=== PATIENT | female | born 1955 | race Caucasian/White ===

== ENCOUNTER → 2017-08-15 | Outpatient (CLI) | payer OTHER ==
[~2017-08-15] MED LIST: CALCITRIOL PO; CYCL-259 PO; DULO30CA2 PO; FERROUS PO; PREG50CA PO; TRAM50TA2 PO
[2017-08-15 10:48] LABS: HEMATOCRIT 38.6 % (34.6-47.8); HEMOGLOBIN 12.4 g/dL (11.7-16.4); WHITE BLOOD COUNT 8.9 x10^3/uL (3.4-10)
[2017-08-15 11:00] LABS: BLOOD UREA NITROGEN 16 mg/dL (7-18)
[2017-08-15 11:04] LABS: ASPARTATE AMINO TRANSFERASE 17 U/L (15-37)
== END | disposition home or self-care (01) ==
LOC: STAR 09:31
PROVIDERS: ATTEND Neurological Surgery
DX: Z01.818 Encounter for other preprocedural examination (principal); M48.062 Spinal stenosis, lumbar region with neurogenic claudication; M43.16 Spondylolisthesis, lumbar region; R79.1 Abnormal coagulation profile
CPT/HCPCS: 36415; 71020; 80053; 81003; 85025; 85610; 85730; 93005

== ENCOUNTER → 2018-08-19 | Outpatient (CLI) | payer OTHER ==
[~2018-08-19] MED LIST changes: +HYDR-3240 PO; +SENN1TAB8 PO
== END | disposition home or self-care (01) ==
LOC: RAD 16:37
PROVIDERS: ATTEND Nurse Practitioner Family
DX: R10.31 Right lower quadrant pain (principal)
CPT/HCPCS: 76857

== ENCOUNTER 2018-08-23 12:03 | Inpatient (IN) | payer OTHER ==
[~2018-08-23] VITALS: Ht 167.6 cm; Wt 68.7 kg
[2018-08-23] MEDS ORDERED: ONDANSETRON 2MG/ML, 2ML IVPush ONE (13:00)
[2018-08-23] MEDS ORDERED: MORPHINE SULFATE 4 MG/ML, 1ML IVPush PRN ×2 (13:00→17:00)
[2018-08-23] MEDS ORDERED: SODIUM CHLORIDE FLUSH 10ML SYR IVF ONE (13:00)
[2018-08-23 13:26] LABS: ALANINE AMINOTRANSFERASE 19 U/L (12-78); ALBUMIN 3.1 g/dL (3.4-5.0); ANION GAP 9 mmol/L (5-15); CHLORIDE 104 mmol/L (98-107)
[2018-08-23 13:27] LABS: ALKALINE PHOSPHATASE 96 U/L (45-117); BILIRUBIN,TOTAL 0.2 mg/dL (0.2-1.0); TOTAL PROTEIN 7.7 g/dL (6.4-8.2)
[2018-08-23] MEDS ORDERED: ONDANSETRON 2MG/ML, 2ML ONE (13:29)
[2018-08-23] MEDS ORDERED: MORPHINE SULFATE 4 MG/ML, 1ML ONE (13:30)
[2018-08-23 13:36] LABS: MEAN CORPUSCULAR VOLUME 63.4 fL (80-100); MEAN PLATELET VOLUME 5.7 fL (7.4-10.4); PLATELET COUNT 885 x10^3/uL (130-400); RED BLOOD COUNT 3.42 x10^6/uL (3.82-5.3); RED CELL DISTRIBUTION WIDTH 21.9 % (9.6-15.2)
[2018-08-23 13:39] LABS: MEAN CORPUSCULAR HGB CONC 29.9 g/dL (32.4-35.8)
[2018-08-23 13:52] LABS: MD YES
[2018-08-23 13:53] LABS: BANDS%(MANUAL) 1 % (0-7); EOS#(MANUAL) 0.29 x10^3/uL (0.0-0.4); EOS% (MANUAL) 3 % (1-7); LYMPH#(MANUAL) 1.94 x10^3/uL (1-3.4); LYMPHS% (MANUAL) 20 % (22-44); MONOS#(MANUAL) 0.49 x10^3/uL (0.3-2.7); MONOS% (MANUAL) 5 % (2-9); SEG#(MANUAL) 6.89 x10^3/uL (1.8-6.8); SEGS% (MANUAL) 71 % (42-75)
[2018-08-23 13:54] LABS: ANISOCYTOSIS 2+; MICROCYTOSIS 2+; OVALOCYTES 1+
[2018-08-23 13:55] LABS: ECHINOCYTES 1+; POLYCHROMASIA 1+
[2018-08-23 13:56] LABS: <PLATELET ESTIMATE> INCREASED; HYPOCHROMIA 2+
[2018-08-23 13:58] LABS: SMALL PLATELETS 1+
[2018-08-23 16:21] VITALS: BP 148/97
[2018-08-23 16:38] VITALS: BP 134/78
[2018-08-23 16:59] LABS: CULTURE INDICATED? NO; MICROSCOPIC NOT IND
[2018-08-23] MEDS: NICOTINE 14MG/24 HR PATCH.TD24 TD SCH (17:00)
[2018-08-23] MEDS ORDERED: HYDROcodone/APAP 5/325 TABLET PO PRN (17:00)
[2018-08-23] MEDS ORDERED: TRAZODONE 50MG TABLET PO PRN (17:00)
[2018-08-23] MEDS ORDERED: CYCLOBENZAPRINE 10 MG TABLET PO PRN (17:00)
[2018-08-23] MEDS ORDERED: ENALAPRILAT 1.25 MG/ML, 2ML IVPush PRN (17:00)
[2018-08-23 17:17] VITALS: BP 132/77
[2018-08-23 17:33] VITALS: BP 134/87
[2018-08-23 19:23] VITALS: BP 144/66
[2018-08-23 21:00] VITALS: BP 123/68
[2018-08-23] MEDS: PREGABALIN 25 MG CAPSULE PO SCH (21:00)
[2018-08-23] MEDS ORDERED: GOLYTELY 4,000ML ORAL.SOL PO ONE (21:00)
[2018-08-23] MEDS: FAMOTIDINE 20 MG/2 ML IVPush SCH (21:18)
[2018-08-24 02:15] VITALS: BP 138/74
[2018-08-24 06:12] LABS: INTERNATIONAL NORMALIZED RATIO 1.02 (0.93-1.1); PROTHROMBIN TIME 10.6 Seconds (9.6-11.5)
[2018-08-24 06:15] LABS: ANION GAP 8 mmol/L (5-15); CALCIUM 8.6 mg/dL (8.5-10.1); CHLORIDE 107 mmol/L (98-107); CREATININE 0.68 mg/dL (0.55-1.02); MEAN CORPUSCULAR HEMOGLOBIN 20.8 pg (27.0-34.8); MEAN PLATELET VOLUME 5.7 fL (7.4-10.4); PLATELET COUNT 722 x10^3/uL (130-400); RED BLOOD COUNT 3.56 x10^6/uL (3.82-5.3); RED CELL DISTRIBUTION WIDTH 25.8 % (9.6-15.2)
[2018-08-24 06:43] LABS: MD YES
[2018-08-24 06:45] LABS: ANISOCYTOSIS 2+; HYPOCHROMIA 2+; LYMPH#(MANUAL) 1.66 x10^3/uL (1-3.4); LYMPHS% (MANUAL) 18 % (22-44); MICROCYTOSIS 2+; MONOS#(MANUAL) 1.01 x10^3/uL (0.3-2.7); MONOS% (MANUAL) 11 % (2-9); OVALOCYTES 1+; POLYCHROMASIA 1+; SEG#(MANUAL) 6.53 x10^3/uL (1.8-6.8); SEGS% (MANUAL) 71 % (42-75)
[2018-08-24 06:46] LABS: <PLATELET ESTIMATE> INCREASED; SMALL PLATELETS 1+
[2018-08-24] MEDS ORDERED: MIDAZOLAM 1 MG/ML, 5ML ONE (07:06)
[2018-08-24] MEDS ORDERED: FENTANYL PF 100 MCG/2ML ONE (07:06)
[2018-08-24] MEDS ORDERED: DIPHENHYDRAMINE 50 MG/ML, 1ML ONE (07:20)
[2018-08-24] MEDS ORDERED: GOLYTELY 4,000ML ORAL.SOL PO ONE (08:30)
[2018-08-24 08:44] VITALS: BP 143/80
[2018-08-24] MEDS: PREGABALIN 25 MG CAPSULE PO SCH ×2 (09:00→19:50)
[2018-08-24] MEDS: FAMOTIDINE 20 MG/2 ML IVPush SCH ×2 (10:05→19:50)
[2018-08-24] MEDS: DULOXETINE 30 MG CAPSULE.DR PO SCH (10:05)
[2018-08-24] MEDS: SENNA/DOCUSATE TABLET PO SCH (10:05)
[2018-08-24 12:52] VITALS: BP 151/82
[2018-08-24] MEDS ORDERED: ACETAMINOPHEN 325 MG TABLET PO PRN (13:00)
[2018-08-24] MEDS: NICOTINE 14MG/24 HR PATCH.TD24 TD SCH (17:00)
[2018-08-24 19:56] VITALS: BP 149/74
[2018-08-25 01:10] VITALS: BP 132/77
[2018-08-25 04:36] LABS: MEAN CORPUSCULAR HEMOGLOBIN 20.3 pg (27.0-34.8); MEAN CORPUSCULAR HGB CONC 30.2 g/dL (32.4-35.8); MEAN CORPUSCULAR VOLUME 67.3 fL (80-100); MEAN PLATELET VOLUME 5.8 fL (7.4-10.4); PLATELET COUNT 742 x10^3/uL (130-400); RED BLOOD COUNT 3.68 x10^6/uL (3.82-5.3); RED CELL DISTRIBUTION WIDTH 26.4 % (9.6-15.2)
[2018-08-25 04:38] LABS: MD YES
[2018-08-25 04:44] LABS: ANION GAP 9 mmol/L (5-15); CALCIUM 8.1 mg/dL (8.5-10.1); CHLORIDE 105 mmol/L (98-107)
[2018-08-25 04:45] LABS: CREATININE 0.63 mg/dL (0.55-1.02)
[2018-08-25 04:53] LABS: <PLATELET ESTIMATE> INCREASED; <PLT MORPHOLOGY> NORMAL PLT MORPH; ANISOCYTOSIS 2+; EOS#(MANUAL) 0.24 x10^3/uL (0.0-0.4); EOS% (MANUAL) 3 % (1-7); HYPOCHROMIA 2+; LYMPHS% (MANUAL) 21 % (22-44); MICROCYTOSIS 2+; MONOS#(MANUAL) 0.81 x10^3/uL (0.3-2.7); MONOS% (MANUAL) 10 % (2-9); OVALOCYTES 1+; POLYCHROMASIA 1+; SEG#(MANUAL) 5.35 x10^3/uL (1.8-6.8); SEGS% (MANUAL) 66 % (42-75)
[2018-08-25 06:42] VITALS: BP 136/80
[2018-08-25] MEDS ORDERED: FENTANYL PF 100 MCG/2ML ONE (07:00)
[2018-08-25] MEDS ORDERED: MIDAZOLAM 1 MG/ML, 5ML ONE (07:01)
[2018-08-25] MEDS ORDERED: DIPHENHYDRAMINE 50 MG/ML, 1ML ONE (07:01)
[2018-08-25] MEDS: SENNA/DOCUSATE TABLET PO SCH (09:00)
[2018-08-25] MEDS: PREGABALIN 25 MG CAPSULE PO SCH ×2 (09:00→21:00)
[2018-08-25] MEDS: DULOXETINE 30 MG CAPSULE.DR PO SCH (11:30)
[2018-08-25] MEDS: IRON SUCROSE COMPLEX 100MG/5ML IV SCH (11:46)
[2018-08-25] MEDS: FAMOTIDINE 20 MG/2 ML IVPush SCH (12:00)
[2018-08-25 13:38] VITALS: BP 137/72
[2018-08-25] MEDS: NICOTINE 14MG/24 HR PATCH.TD24 TD SCH (17:00)
[2018-08-25 19:54] VITALS: BP 129/83
[2018-08-25] MEDS: FAMOTIDINE 20 MG TABLET PO SCH (21:19)
[2018-08-26 01:51] VITALS: BP 127/75
[2018-08-26 04:40] LABS: MEAN CORPUSCULAR HEMOGLOBIN 20.6 pg (27.0-34.8); MEAN CORPUSCULAR HGB CONC 30.3 g/dL (32.4-35.8); MEAN CORPUSCULAR VOLUME 68.2 fL (80-100); MEAN PLATELET VOLUME 6.3 fL (7.4-10.4); PLATELET COUNT 703 x10^3/uL (130-400); RED BLOOD COUNT 3.83 x10^6/uL (3.82-5.3)
[2018-08-26 04:50] LABS: CHLORIDE 109 mmol/L (98-107)
[2018-08-26 04:51] LABS: RED CELL DISTRIBUTION WIDTH 26.7 % (9.6-15.2)
[2018-08-26 04:53] LABS: ANION GAP 9 mmol/L (5-15); CALCIUM 8.9 mg/dL (8.5-10.1); CREATININE 0.84 mg/dL (0.55-1.02)
[2018-08-26 05:59] LABS: MD YES
[2018-08-26 06:01] LABS: BASOS#(MANUAL) 0.09 x10^3/uL (0-0.1); BASOS% (MANUAL) 1 % (0-1); EOS#(MANUAL) 0.09 x10^3/uL (0.0-0.4); EOS% (MANUAL) 1 % (1-7); LYMPH#(MANUAL) 1.49 x10^3/uL (1-3.4); LYMPHS% (MANUAL) 16 % (22-44); MONOS#(MANUAL) 1.21 x10^3/uL (0.3-2.7); MONOS% (MANUAL) 13 % (2-9); SEG#(MANUAL) 6.42 x10^3/uL (1.8-6.8); SEGS% (MANUAL) 69 % (42-75)
[2018-08-26 06:03] LABS: ANISOCYTOSIS 2+; HYPOCHROMIA 2+; MICROCYTOSIS 2+; OVALOCYTES 1+; POLYCHROMASIA 1+
[2018-08-26 06:04] LABS: <PLATELET ESTIMATE> INCREASED; SMALL PLATELETS 1+
[2018-08-26 06:05] LABS: SPHEROCYTES 1+
[2018-08-26 07:54] VITALS: BP 117/77
[2018-08-26] MEDS ORDERED: FERROUS GLUCONATE 324 MG TABLET PO SCH (08:00)
[2018-08-26] MEDS: SENNA/DOCUSATE TABLET PO SCH (09:00)
[2018-08-26] MEDS: PREGABALIN 25 MG CAPSULE PO SCH ×2 (09:00→21:00)
[2018-08-26] MEDS: DULOXETINE 30 MG CAPSULE.DR PO SCH (09:00)
[2018-08-26] MEDS: FAMOTIDINE 20 MG TABLET PO SCH ×2 (09:22→21:20)
[2018-08-26] MEDS: IRON SUCROSE COMPLEX 100MG/5ML IV SCH (09:22)
[2018-08-26 13:37] VITALS: BP 117/64
[2018-08-26] MEDS: NICOTINE 14MG/24 HR PATCH.TD24 TD SCH (17:00)
[2018-08-26 19:32] VITALS: BP 128/76
[2018-08-26] MEDS ORDERED: OMNIPAQUE 350 MG/ML, 75ML BOTTLE ONE (21:55)
[2018-08-27 00:48] VITALS: BP 108/54
[2018-08-27 04:46] LABS: MEAN CORPUSCULAR HEMOGLOBIN 20.9 pg (27.0-34.8); MEAN CORPUSCULAR HGB CONC 30.8 g/dL (32.4-35.8); MEAN CORPUSCULAR VOLUME 67.9 fL (80-100); MEAN PLATELET VOLUME 6.1 fL (7.4-10.4); PLATELET COUNT 702 x10^3/uL (130-400); RED BLOOD COUNT 3.63 x10^6/uL (3.82-5.3); RED CELL DISTRIBUTION WIDTH 26.9 % (9.6-15.2)
[2018-08-27 04:56] LABS: ANION GAP 8 mmol/L (5-15); CALCIUM 8.7 mg/dL (8.5-10.1); CHLORIDE 107 mmol/L (98-107)
[2018-08-27 04:57] LABS: CREATININE 0.83 mg/dL (0.55-1.02)
[2018-08-27 05:10] LABS: MD YES
[2018-08-27 05:12] LABS: ANISOCYTOSIS 2+; BAND#(MANUAL) 0.11 x10^3/uL; BANDS%(MANUAL) 1 % (0-7); BASOS#(MANUAL) 0.11 x10^3/uL (0-0.1); BASOS% (MANUAL) 1 % (0-1); EOS#(MANUAL) 0.46 x10^3/uL (0.0-0.4); EOS% (MANUAL) 4 % (1-7); HYPOCHROMIA 2+; LYMPH#(MANUAL) 3.08 x10^3/uL (1-3.4); LYMPHS% (MANUAL) 27 % (22-44); MICROCYTOSIS 2+; MONOS#(MANUAL) 0.68 x10^3/uL (0.3-2.7); MONOS% (MANUAL) 6 % (2-9); POLYCHROMASIA 1+; SEG#(MANUAL) 6.95 x10^3/uL (1.8-6.8); SEGS% (MANUAL) 61 % (42-75)
[2018-08-27 05:13] LABS: OVALOCYTES 1+; SCHISTOCYTES 1+
[2018-08-27 05:14] LABS: <PLATELET ESTIMATE> INCREASED; <PLT MORPHOLOGY> NORMAL PLT MORPH
[2018-08-27 07:17] VITALS: BP 109/65
[2018-08-27] MEDS: PREGABALIN 25 MG CAPSULE PO SCH ×2 (09:00→20:57)
[2018-08-27] MEDS: SENNA/DOCUSATE TABLET PO SCH (09:00)
[2018-08-27] MEDS: DULOXETINE 30 MG CAPSULE.DR PO SCH (09:00)
[2018-08-27] MEDS: FAMOTIDINE 20 MG TABLET PO SCH ×2 (09:00→20:57)
[2018-08-27] MEDS: IRON SUCROSE COMPLEX 100MG/5ML IV SCH (09:20)
[2018-08-27] MEDS: NICOTINE 14MG/24 HR PATCH.TD24 TD SCH ×2 (09:21→18:00)
[2018-08-27 13:27] VITALS: BP 132/79
[2018-08-27] MEDS ORDERED: EPINEPHRINE 1 MG/ML, 1ML ONE (14:15)
[2018-08-27] MEDS ORDERED: BUPIVACAINE/PF 0.5% ONE (14:15)
[2018-08-27] MEDS ORDERED: FENTANYL PF 250 MCG/5ML ONE (15:08)
[2018-08-27] MEDS ORDERED: MIDAZOLAM 1 MG/ML, 2ML ONE (15:08)
[2018-08-27] MEDS ORDERED: LIDOCAINE JELLY 2%, 30GM ONE (15:12)
[2018-08-27] MEDS ORDERED: ROCURONIUM 10MG/ML,5ML ONE (15:13)
[2018-08-27] MEDS ORDERED: ROPIvacaine/PF 0.2%, 20 ML ONE ×2 (15:14)
[2018-08-27] MEDS ORDERED: INDOCYANINE GREEN 25 MG VIAL ONE (15:31)
[2018-08-27] MEDS ORDERED: ONDANSETRON 2MG/ML, 2ML ONE ×3 (15:36→17:46)
[2018-08-27] MEDS ORDERED: KETOROLAC 30 MG/1 ML ONE ×2 (15:36→17:46)
[2018-08-27] MEDS ORDERED: PROPOFOL 10 MG/ML, 20ML ONE (15:36)
[2018-08-27] MEDS ORDERED: SUCCINYLCHOLINE 20 MG/ML, 10ML ONE (15:36)
[2018-08-27] MEDS ORDERED: CEFOTETAN PMX 1GM/50ML 50 ML IVPB ONE (15:36)
[2018-08-27] MEDS ORDERED: ROCURONIUM 10 MG/ML,10ML ONE (15:36)
[2018-08-27] MEDS ORDERED: DEXAMETHASONE 4 MG/ML, 1ML ONE (15:36)
[2018-08-27] MEDS ORDERED: hydrALAzine 20 MG/ML, 1ML IV PRN (16:30)
[2018-08-27] MEDS ORDERED: ACETAMINOPHEN 325 MG TABLET PO PRN (16:30)
[2018-08-27] MEDS ORDERED: HALOPERIDOL 5 MG/ML IV PRN (16:30)
[2018-08-27] MEDS ORDERED: LABETALOL 5MG/ML, 20ML IV PRN (16:30)
[2018-08-27] MEDS ORDERED: HYDROmorphone 1 MG/ML, 1ML IV PRN (16:30)
[2018-08-27] MEDS ORDERED: ONDANSETRON 2MG/ML, 2ML IV PRN (16:30)
[2018-08-27] MEDS ORDERED: ONDANSETRON ODT 8 MG PO PRN (16:30)
[2018-08-27] MEDS ORDERED: OXYcodone 5 MG/5 ML ORAL.SOL UDC PO PRN (16:30)
[2018-08-27] MEDS ORDERED: EPHEDRINE 50 MG/ML, 1ML IVPush PRN (16:30)
[2018-08-27] MEDS ORDERED: PROMETHAZINE 25 MG/ML, 1ML IV PRN (16:30)
[2018-08-27] MEDS ORDERED: MORPHINE SULFATE 4 MG/ML, 1ML IVPush PRN (16:30)
[2018-08-27] MEDS ORDERED: LORazepam 2 MG/ML, 1ML IVPush PRN (16:30)
[2018-08-27] MEDS ORDERED: FENTANYL PF 100 MCG/2ML IV PRN (16:30)
[2018-08-27] MEDS ORDERED: MEPERIDINE/PF 25MG/0.5ML IVPush PRN (16:30)
[2018-08-27] MEDS ORDERED: MIDAZOLAM 1 MG/ML, 2ML IV PRN (16:30)
[2018-08-27] MEDS ORDERED: ALBUTEROL SULFATE 2.5 MG/3 ML NPPB PRN (16:30)
[2018-08-27] MEDS ORDERED: PROMETHAZINE 12.5 MG SUPP PR PRN (16:30)
[2018-08-27] MEDS ORDERED: FENTANYL PF 100 MCG/2ML ONE ×2 (17:02→17:26)
[2018-08-27] MEDS ORDERED: LACTATED RINGERS 1,000 ML IV SCH (17:51)
[2018-08-27] MEDS ORDERED: CEFTRIAXONE 2 GM in SODIUM CHLORIDE 0.9% 50 ML IVPB SCH (18:00)
[2018-08-27] MEDS ORDERED: HYDROmorphone 1 MG/ML, 1ML IVPush PRN (18:00)
[2018-08-27] MEDS: ENOXAPARIN 30 MG/0.3 ML SQ SCH (18:00)
[2018-08-27] MEDS ORDERED: ONDANSETRON 2MG/ML, 2ML IVPush PRN (18:00)
[2018-08-27] MEDS ORDERED: CEFTAZIDIME PMX 2 GM/50ML 50 ML IVPB SCH (18:09)
[2018-08-27] MEDS ORDERED: OXYcodone 5 MG/5 ML ORAL.SOL UDC ONE (18:19)
[2018-08-27] MEDS: ACETAMINOPHEN 100 ML IVPB SCH ×2 (18:30→23:59)
[2018-08-27] MEDS ORDERED: ACETAMINOPHEN 650 MG/20.3 ML UDC ONE (18:32)
[2018-08-27 19:19] VITALS: BP 138/72
[2018-08-27] MEDS: CEFTRIAXONE PMX 2GM/50ML 50 ML IVPB SCH (20:56)
[2018-08-28 03:52] VITALS: BP 115/65
[2018-08-28 05:08] LABS: MEAN CORPUSCULAR HEMOGLOBIN 21.1 pg (27.0-34.8); MEAN CORPUSCULAR HGB CONC 30.6 g/dL (32.4-35.8); MEAN PLATELET VOLUME 6.3 fL (7.4-10.4); PLATELET COUNT 678 x10^3/uL (130-400); RED BLOOD COUNT 3.48 x10^6/uL (3.82-5.3); RED CELL DISTRIBUTION WIDTH 27.8 % (9.6-15.2)
[2018-08-28 05:11] LABS: ALANINE AMINOTRANSFERASE 20 U/L (12-78); ALBUMIN 2.6 g/dL (3.4-5.0); ANION GAP 9 mmol/L (5-15); CALCIUM 8.1 mg/dL (8.5-10.1); CHLORIDE 106 mmol/L (98-107)
[2018-08-28 05:14] LABS: ALKALINE PHOSPHATASE 84 U/L (45-117); BILIRUBIN,TOTAL 0.2 mg/dL (0.2-1.0); CREATININE 1.06 mg/dL (0.55-1.02); TOTAL PROTEIN 6.8 g/dL (6.4-8.2)
[2018-08-28 05:44] LABS: MD YES
[2018-08-28] MEDS: ACETAMINOPHEN 100 ML IVPB SCH ×2 (05:48→11:49)
[2018-08-28 06:11] LABS: LYMPH#(MANUAL) 0.31 x10^3/uL (1-3.4); LYMPHS% (MANUAL) 2 % (22-44); SEG#(MANUAL) 15.09 x10^3/uL (1.8-6.8); SEGS% (MANUAL) 98 % (42-75)
[2018-08-28 06:12] LABS: <PLATELET ESTIMATE> INCREASED; <PLT MORPHOLOGY> NORMAL PLT MORPH; ANISOCYTOSIS 2+; MICROCYTOSIS 2+; OVALOCYTES 1+; POLYCHROMASIA 1+
[2018-08-28 06:13] LABS: TOXIC GRAN 1+
[2018-08-28 06:25] LABS: HYPOCHROMIA 1+
[2018-08-28 08:03] VITALS: BP 110/53
[2018-08-28] MEDS: ENOXAPARIN 30 MG/0.3 ML SQ SCH ×2 (08:36→20:41)
[2018-08-28] MEDS: PREGABALIN 25 MG CAPSULE PO SCH ×2 (08:36→21:00)
[2018-08-28] MEDS: SENNA/DOCUSATE TABLET PO SCH (08:37)
[2018-08-28] MEDS: DULOXETINE 30 MG CAPSULE.DR PO SCH (08:37)
[2018-08-28] MEDS: IRON SUCROSE COMPLEX 100MG/5ML IV SCH (08:37)
[2018-08-28] MEDS: FAMOTIDINE 20 MG TABLET PO SCH ×2 (08:37→20:41)
[2018-08-28] MEDS ORDERED: IRON SUCROSE COMPLEX 100MG/5ML IV SCH (09:00)
[2018-08-28 13:27] VITALS: BP 115/72
[2018-08-28] MEDS: NICOTINE 14MG/24 HR PATCH.TD24 TD SCH ×2 (16:55→18:00)
[2018-08-28] MEDS: OXYcodone IR 5MG TABLET PO PRN (17:52)
[2018-08-28] MEDS: CEFTRIAXONE PMX 2GM/50ML 50 ML IVPB SCH (18:21)
[2018-08-28 19:24] VITALS: BP 115/66
[2018-08-28] MEDS: LACTATED RINGERS 1,000 ML IV SCH (23:02)
[2018-08-29] VITALS (10 sets, daily range): BP systolic 111–134; BP diastolic 61–81
[2018-08-29] MEDS: OXYcodone IR 5MG TABLET PO PRN ×4 (01:48→23:38)
[2018-08-29 05:32] LABS: ALBUMIN 2.4 g/dL (3.4-5.0); ANION GAP 4 mmol/L (5-15); CALCIUM 8.5 mg/dL (8.5-10.1); CHLORIDE 110 mmol/L (98-107)
[2018-08-29 05:34] LABS: MEAN CORPUSCULAR HEMOGLOBIN 21.4 pg (27.0-34.8); MEAN CORPUSCULAR HGB CONC 30.5 g/dL (32.4-35.8); MEAN CORPUSCULAR VOLUME 70.1 fL (80-100); MEAN PLATELET VOLUME 6.2 fL (7.4-10.4); PLATELET COUNT 658 x10^3/uL (130-400); RED BLOOD COUNT 2.99 x10^6/uL (3.82-5.3); RED CELL DISTRIBUTION WIDTH 29.5 % (9.6-15.2)
[2018-08-29 05:35] LABS: ALANINE AMINOTRANSFERASE 19 U/L (12-78); ALKALINE PHOSPHATASE 75 U/L (45-117); BILIRUBIN,TOTAL 0.2 mg/dL (0.2-1.0); CREATININE 0.75 mg/dL (0.55-1.02); TOTAL PROTEIN 6.3 g/dL (6.4-8.2)
[2018-08-29 06:16] LABS: MD YES
[2018-08-29 06:19] LABS: ANISOCYTOSIS 2+; EOS#(MANUAL) 0.12 x10^3/uL (0.0-0.4); EOS% (MANUAL) 1 % (1-7); HYPOCHROMIA 1+; LYMPH#(MANUAL) 1.39 x10^3/uL (1-3.4); LYMPHS% (MANUAL) 12 % (22-44); MICROCYTOSIS 2+; MONOS#(MANUAL) 0.12 x10^3/uL (0.3-2.7); MONOS% (MANUAL) 1 % (2-9); OVALOCYTES 1+; POLYCHROMASIA 1+; SEG#(MANUAL) 9.98 x10^3/uL (1.8-6.8); SEGS% (MANUAL) 86 % (42-75)
[2018-08-29 06:20] LABS: <PLATELET ESTIMATE> INCREASED; <PLT MORPHOLOGY> NORMAL PLT MORPH
[2018-08-29] MEDS ORDERED: POTASSIUM PHOSPHATE 44 MEQ in SODIUM CHLORIDE 0.9% 500 ML IV ONE (08:30)
[2018-08-29] MEDS: PREGABALIN 25 MG CAPSULE PO SCH ×2 (09:00→20:07)
[2018-08-29] MEDS: ENOXAPARIN 30 MG/0.3 ML SQ SCH ×2 (09:00→19:30)
[2018-08-29] MEDS: IRON SUCROSE COMPLEX 100MG/5ML IV SCH (09:04)
[2018-08-29] MEDS: DULOXETINE 30 MG CAPSULE.DR PO SCH (09:05)
[2018-08-29] MEDS: LACTATED RINGERS 1,000 ML IV SCH (09:05)
[2018-08-29] MEDS: SENNA/DOCUSATE TABLET PO SCH (09:05)
[2018-08-29] MEDS: FAMOTIDINE 20 MG TABLET PO SCH ×2 (09:06→20:05)
[2018-08-29] MEDS: NICOTINE 14MG/24 HR PATCH.TD24 TD SCH (18:00)
[2018-08-29] MEDS: MAGNESIUM HYDROXIDE 8%, 30ML UDC PO SCH (20:05)
[2018-08-29] MEDS: CEFTRIAXONE PMX 2GM/50ML 50 ML IVPB SCH (20:05)
[2018-08-30 02:16] VITALS: BP 156/88
[2018-08-30 06:01] LABS: MEAN CORPUSCULAR HEMOGLOBIN 23.8 pg (27.0-34.8); MEAN CORPUSCULAR HGB CONC 32.1 g/dL (32.4-35.8); MEAN PLATELET VOLUME 6.9 fL (7.4-10.4); PLATELET COUNT 729 x10^3/uL (130-400); RED BLOOD COUNT 4.79 x10^6/uL (3.82-5.3)
[2018-08-30 06:08] LABS: ALBUMIN 2.6 g/dL (3.4-5.0); ANION GAP 10 mmol/L (5-15); CALCIUM 9.2 mg/dL (8.5-10.1); CHLORIDE 100 mmol/L (98-107)
[2018-08-30 06:12] LABS: ALANINE AMINOTRANSFERASE 18 U/L (12-78); ALKALINE PHOSPHATASE 97 U/L (45-117); BILIRUBIN,TOTAL 0.4 mg/dL (0.2-1.0); CREATININE 0.67 mg/dL (0.55-1.02)
[2018-08-30 06:35] LABS: MD YES
[2018-08-30 06:41] LABS: BAND#(MANUAL) 0.42 x10^3/uL; BANDS%(MANUAL) 2 % (0-7); LYMPH#(MANUAL) 4.99 x10^3/uL (1-3.4); LYMPHS% (MANUAL) 24 % (22-44); MICROCYTOSIS 2+; SEG#(MANUAL) 15.39 x10^3/uL (1.8-6.8); SEGS% (MANUAL) 74 % (42-75)
[2018-08-30 06:42] LABS: <PLATELET ESTIMATE> INCREASED; <PLT MORPHOLOGY> NORMAL PLT MORPH; ANISOCYTOSIS 2+
[2018-08-30 08:16] VITALS: BP 139/91
[2018-08-30] MEDS: PREGABALIN 25 MG CAPSULE PO SCH ×3 (09:00→20:16)
[2018-08-30] MEDS: DULOXETINE 30 MG CAPSULE.DR PO SCH (09:31)
[2018-08-30] MEDS: ENOXAPARIN 30 MG/0.3 ML SQ SCH ×2 (09:31→20:15)
[2018-08-30] MEDS: METOCLOPRAMIDE 5 MG/ML, 2ML IVPush SCH ×3 (09:31→20:10)
[2018-08-30] MEDS: FAMOTIDINE 20 MG TABLET PO SCH ×2 (09:31→20:14)
[2018-08-30] MEDS: SENNA/DOCUSATE TABLET PO SCH (09:31)
[2018-08-30 14:30] VITALS: BP 140/87
[2018-08-30] MEDS: NICOTINE 14MG/24 HR PATCH.TD24 TD SCH (18:00)
[2018-08-30] MEDS: MAGNESIUM HYDROXIDE 8%, 30ML UDC PO SCH (20:14)
[2018-08-30] MEDS: CEFTRIAXONE PMX 2GM/50ML 50 ML IVPB SCH (20:15)
[2018-08-30 20:57] VITALS: BP 155/88
[2018-08-31] MEDS: METOCLOPRAMIDE 5 MG/ML, 2ML IVPush SCH ×3 (02:24→14:26)
[2018-08-31 03:01] VITALS: BP 158/80
[2018-08-31 04:52] LABS: ALBUMIN 2.3 g/dL (3.4-5.0); ANION GAP 10 mmol/L (5-15); CHLORIDE 99 mmol/L (98-107); CREATININE 0.66 mg/dL (0.55-1.02)
[2018-08-31 04:56] LABS: MEAN CORPUSCULAR HEMOGLOBIN 23.9 pg (27.0-34.8); MEAN CORPUSCULAR HGB CONC 31.9 g/dL (32.4-35.8); MEAN CORPUSCULAR VOLUME 74.9 fL (80-100); MEAN PLATELET VOLUME 6.8 fL (7.4-10.4); PLATELET COUNT 808 x10^3/uL (130-400); RED BLOOD COUNT 4.83 x10^6/uL (3.82-5.3); RED CELL DISTRIBUTION WIDTH 31.2 % (9.6-15.2)
[2018-08-31 06:10] LABS: MD YES
[2018-08-31 06:12] LABS: ANISOCYTOSIS 2+; EOS#(MANUAL) 0.18 x10^3/uL (0.0-0.4); EOS% (MANUAL) 1 % (1-7); LYMPH#(MANUAL) 2.33 x10^3/uL (1-3.4); LYMPHS% (MANUAL) 13 % (22-44); MONOS#(MANUAL) 1.07 x10^3/uL (0.3-2.7); MONOS% (MANUAL) 6 % (2-9); SEG#(MANUAL) 14.32 x10^3/uL (1.8-6.8); SEGS% (MANUAL) 80 % (42-75)
[2018-08-31 06:13] LABS: <PLATELET ESTIMATE> INCREASED; <PLT MORPHOLOGY> NORMAL PLT MORPH; MICROCYTOSIS 1+
[2018-08-31 06:14] LABS: HYPOCHROMIA 1+; POLYCHROMASIA 1+
[2018-08-31] MEDS: FAMOTIDINE 20 MG TABLET PO SCH (08:15)
[2018-08-31] MEDS: SENNA/DOCUSATE TABLET PO SCH (08:15)
[2018-08-31] MEDS: ENOXAPARIN 30 MG/0.3 ML SQ SCH (08:15)
[2018-08-31] MEDS: DULOXETINE 30 MG CAPSULE.DR PO SCH (08:15)
[2018-08-31 08:30] VITALS: BP 147/87
[2018-08-31 14:03] VITALS: BP 135/80
== END 2018-08-31 16:09 | disposition home or self-care (01) | DRG 329 ==
LOC: ED 16:05 → EDIP 16:30 → 3NW 17:24
PROVIDERS: ADMIT Hospitalist; ATTEND Hospitalist
PROC: 30233N1 Transfusion of Nonautologous Red Blood Cells into Peripheral Vein, Percutaneous Approach (ICD-10-PCS; 2018-08-23)
PROC: 0DJD8ZZ Inspection of Lower Intestinal Tract, Via Natural or Artificial Opening Endoscopic (ICD-10-PCS; 2018-08-24)
PROC: 0DBK8ZX Excision of Ascending Colon, Via Natural or Artificial Opening Endoscopic, Diagnostic (ICD-10-PCS; 2018-08-25)
PROC: 0DBN8ZZ Excision of Sigmoid Colon, Via Natural or Artificial Opening Endoscopic (ICD-10-PCS; 2018-08-25)
PROC: 0D1 Gastrointestinal System, Bypass (ICD-10-PCS; 2018-08-27)
PROC: 8E0W4CZ Robotic Assisted Procedure of Trunk Region, Percutaneous Endoscopic Approach (ICD-10-PCS; 2018-08-27)
PROC: 0DTF4ZZ Resection of Right Large Intestine, Percutaneous Endoscopic Approach (ICD-10-PCS; principal; 2018-08-27 16:30)
DX: C18.0 Malignant neoplasm of cecum (principal); N17.0 Acute kidney failure with tubular necrosis; C18.2 Malignant neoplasm of ascending colon; C77.2 Secondary and unspecified malignant neoplasm of intra-abdominal lymph nodes; D62 Acute posthemorrhagic anemia; K56.7 Ileus, unspecified; D12.5 Benign neoplasm of sigmoid colon; D72.829 Elevated white blood cell count, unspecified; E86.0 Dehydration; F17.210 Nicotine dependence, cigarettes, uncomplicated; F32.9 Major depressive disorder, single episode, unspecified; F41.9 Anxiety disorder, unspecified; G43.909 Migraine, unspecified, not intractable, without status migrainosus; G89.3 Neoplasm related pain (acute) (chronic); I80.8 Phlebitis and thrombophlebitis of other sites; Z80.3 Family history of malignant neoplasm of breast; Z80.6 Family history of leukemia; Z80.7 Family history of other malignant neoplasms of lymphoid, hematopoietic and related tissues; Z82.3 Family history of stroke; Z90.710 Acquired absence of both cervix and uterus; Z90.49 Acquired absence of other specified parts of digestive tract; G89.29 Other chronic pain; M48.00 Spinal stenosis, site unspecified; R63.0 Anorexia; Z68.24 Body mass index [BMI] 24.0-24.9, adult
CPT/HCPCS: 36415; 99285; J3490; S0028; 36430; 71260; 74177; 80048; 80053; 81003; 82040; 82378; 83540; 83550; 83690; 83735; 84100; 85018; 85025; 85610; 86850; 86900; 86923; 88305; 88307; 93005; 96374; 96375; 99152; 99153; G0378; J0131; J0171; J0696; J1100; J1650; J1756; J1885; J2250; J2405; J2704; J2795; J3010; Q9967; J0330; J1200; J2765; J7040; J7120; P9016

== ENCOUNTER 2018-11-07 05:52 | Day surgery (SDC) | payer OTHER ==
[~2018-11-07] VITALS: Ht 170.2 cm; Wt 67.4 kg
[2018-11-07 06:53] VITALS: BP 157/88
[2018-11-07] MEDS ORDERED: CEFAZOLIN PMX 1GM/50ML 50 ML IV ONE (07:00)
[2018-11-07] MEDS ORDERED: SODIUM CHLORIDE 0.9% 1,000 ML IV SCH (07:00)
[2018-11-07] MEDS ORDERED: BISA-49 PO (07:02)
[2018-11-07] MEDS ORDERED: ONAB100V INJ (07:02)
[2018-11-07] MEDS ORDERED: EREN70AU INJ (07:02)
[2018-11-07] MEDS ORDERED: VITAMIN D PO (07:02)
[2018-11-07] MEDS ORDERED: CYCL-259 PO (07:02)
[2018-11-07] MEDS ORDERED: TRAM100T33 PO (07:02)
[2018-11-07] MEDS ORDERED: MULT-6 PO (07:02)
[2018-11-07] MEDS ORDERED: LIDOCAINE-MPF 1%, 5ML ONE ×2 (07:51→08:48)
[2018-11-07] MEDS ORDERED: FENTANYL PF 100 MCG/2ML ONE (07:58)
[2018-11-07] MEDS ORDERED: NALOXONE 1 MG/ML, 2ML ONE (07:59)
[2018-11-07] MEDS ORDERED: MIDAZOLAM 1 MG/ML, 5ML ONE ×2 (07:59)
[2018-11-07] MEDS ORDERED: FLUMAZENIL 0.1 MG/1 ML, 5ML ONE (07:59)
== END 2018-11-07 10:45 | disposition home or self-care (01) ==
LOC: OUT 05:52
PROVIDERS: ATTEND Internal Medicine Hematology & Oncology
DX: Z45.2 Encounter for adjustment and management of vascular access device (principal); C18.2 Malignant neoplasm of ascending colon; G43.909 Migraine, unspecified, not intractable, without status migrainosus; F32.9 Major depressive disorder, single episode, unspecified; Z87.891 Personal history of nicotine dependence; Z88.6 Allergy status to analgesic agent; Z98.890 Other specified postprocedural states; Z98.49 Cataract extraction status, unspecified eye
CPT/HCPCS: 36561; 76937; 77001; 99156; 99157; C1788; C1894; J0690; J1642; J2250; J3010; J7030; J2310

== ENCOUNTER 2018-12-13 15:47 | Inpatient (IN) | payer OTHER ==
[~2018-12-13] VITALS: Ht 167.6 cm; Wt 69.6 kg
[~2018-12-13 15:47] MED LIST changes: +BISA-49 PO; +CAPE500T24 PO; +EREN70AU INJ; +MULT-6 PO; +ONAB100V INJ; +TRAM100T33 PO; +VITAMIN D PO
--- NOTE | 2018-12-13 16:00 | NUR ---
PT TO ROOM FROM TRIAGE, PT REPORTS 3 DAY HX OF WATERY DIARRHEA AND VOMITING "WHENEVER I EAT OR DRINK", PT CURRENTLY UNDERGOING CHEMO FOR COLON CA. PT PLACED ON MONITOR, NAD, CALL LIGHT WITHIN REACH. INSTRUCTED TO OBTAIN URINE SAMPLE
[2018-12-13 16:55] LABS: ALBUMIN 3.7 g/dL (3.4-5.0); ANION GAP 8 mmol/L (5-15); CALCIUM 8.5 mg/dL (8.5-10.1); CHLORIDE 100 mmol/L (98-107)
[2018-12-13 17:05] LABS: ALANINE AMINOTRANSFERASE 36 U/L (12-78); ALKALINE PHOSPHATASE 102 U/L (45-117); BILIRUBIN,TOTAL 0.4 mg/dL (0.2-1.0); CREATININE 1.07 mg/dL (0.55-1.02); TOTAL PROTEIN 7.5 g/dL (6.4-8.2)
[2018-12-13 17:07] LABS: MD YES; MEAN CORPUSCULAR HEMOGLOBIN 31.2 pg (27.0-34.8); MEAN CORPUSCULAR HGB CONC 34.3 g/dL (32.4-35.8); MEAN CORPUSCULAR VOLUME 90.9 fL (80-100); MEAN PLATELET VOLUME 6.9 fL (7.4-10.4); PLATELET COUNT 255 x10^3/uL (130-400); RED BLOOD COUNT 4.87 x10^6/uL (3.82-5.3); RED CELL DISTRIBUTION WIDTH 14.7 % (9.6-15.2)
[2018-12-13 17:15] LABS: BAND#(MANUAL) 1.07 x10^3/uL; BANDS%(MANUAL) 17 % (0-7); LYMPH#(MANUAL) 2.08 x10^3/uL (1-3.4); LYMPHS% (MANUAL) 33 % (22-44); METAMYELOCYTES# (MANUAL) 0.06 x10^3/uL (0-0); METAMYELOCYTES% (MANUAL) 1 % (0-1); MONOS#(MANUAL) 1.45 x10^3/uL (0.3-2.7); MONOS% (MANUAL) 23 % (2-9); REACTIVE LYMPHS # (MANUAL) 0.32 x10^3/uL (0-0); REACTIVE LYMPHS % (MANUAL) 5 % (0-0); SEG#(MANUAL) 1.32 x10^3/uL (1.8-6.8); SEGS% (MANUAL) 21 % (42-75)
[2018-12-13 17:16] LABS: <PLATELET ESTIMATE> ADEQUATE; <PLT MORPHOLOGY> NORMAL PLT MORPH; ANISOCYTOSIS 1+
[2018-12-13] MEDS ORDERED: ONDANSETRON 2MG/ML, 2ML ONE (17:56)
[2018-12-13] MEDS ORDERED: SODIUM CHLORIDE 0.9% 1,000ML IVBOLUS ONE (18:00)
[2018-12-13] MEDS ORDERED: ONDANSETRON 2MG/ML, 2ML IVPush ONE (18:00)
[2018-12-13] MEDS ORDERED: OMNIPAQUE 350 MG/ML, 100ML BOTTLE ONE (18:34)
[2018-12-13 18:40] LABS: MICROSCOPIC INDICATED
[2018-12-13 18:57] LABS: CULTURE INDICATED? NO
--- NOTE | 2018-12-13 19:06 | NUR ---
REPORT FROM CHANA RN. PT SAYS NAUSEA HAS IMPROVED. VSS. PT WAITING FOR CT RESULTS. CALL LIGHT IN REACH
[2018-12-13] MEDS ORDERED: CEFTRIAXONE PMX 1GM/50ML 50 ML IV ONE (20:00)
[2018-12-13] MEDS ORDERED: METRONIDAZOLE PMX 500MG/100ML 100 ML IV ONE (20:00)
[2018-12-13] MEDS ORDERED: CEFTRIAXONE PMX 1GM/50ML 50 ML ONE (20:15)
--- NOTE | 2018-12-13 20:30 | NUR ---
SR[facility]AR RUNNING. MED REC COMPLETE. VSS. REPORT TO SHAMAR CONNORS
[2018-12-13] MEDS ORDERED: CAPECITABINE PO SCH (21:00)
[2018-12-13] MEDS ORDERED: morphine SULFATE 10 MG/ML, 1ML IVPush PRN (21:00)
[2018-12-13] MEDS ORDERED: ACETAMINOPHEN 325 MG TABLET PO PRN (21:00)
[2018-12-13] MEDS ORDERED: ONDANSETRON 2MG/ML, 2ML IVPush PRN (21:00)
[2018-12-13 21:13] VITALS: BP 141/72
[2018-12-13] MEDS ORDERED: TEMAZEPAM 15 MG CAPSULE PO PRN (22:00)
[2018-12-13] MEDS: METRONIDAZOLE PMX 500MG/100ML 100 ML IV SCH (22:21)
[2018-12-13] MEDS: NS + 20MEQ KCL 1,000 ML IV SCH (22:21)
[2018-12-13] MEDS: HYDROmorphone 2 MG/ML, 1ML IVPush PRN (22:22)
[2018-12-13 23:47] LABS: CLOSTRIDIUM DIFFICILE ANTIGEN NEGATIVE; CLOSTRIDIUM DIFFICILE TOXIN NEGATIVE (Negative)
[2018-12-14 01:23] VITALS: BP 111/69
[2018-12-14] MEDS: HYDROmorphone 2 MG/ML, 1ML IVPush PRN ×3 (01:36→11:52)
[2018-12-14 04:49] LABS: ALANINE AMINOTRANSFERASE 28 U/L (12-78); ALBUMIN 2.7 g/dL (3.4-5.0); ANION GAP 6 mmol/L (5-15); CALCIUM 7.4 mg/dL (8.5-10.1); CHLORIDE 110 mmol/L (98-107)
[2018-12-14 04:52] LABS: ALKALINE PHOSPHATASE 77 U/L (45-117); BILIRUBIN,TOTAL 0.2 mg/dL (0.2-1.0); CREATININE 0.78 mg/dL (0.55-1.02); TOTAL PROTEIN 5.9 g/dL (6.4-8.2)
[2018-12-14 05:07] LABS: MEAN CORPUSCULAR HEMOGLOBIN 30.7 pg (27.0-34.8); MEAN CORPUSCULAR HGB CONC 33.5 g/dL (32.4-35.8); MEAN CORPUSCULAR VOLUME 91.7 fL (80-100); MEAN PLATELET VOLUME 7.3 fL (7.4-10.4); PLATELET COUNT 204 x10^3/uL (130-400); RED BLOOD COUNT 4.17 x10^6/uL (3.82-5.3); RED CELL DISTRIBUTION WIDTH 14.4 % (9.6-15.2)
[2018-12-14] MEDS: METRONIDAZOLE PMX 500MG/100ML 100 ML IV SCH ×3 (05:59→21:49)
[2018-12-14 06:03] LABS: MD YES
[2018-12-14 06:08] LABS: <PLATELET ESTIMATE> ADEQUATE; <PLT MORPHOLOGY> NORMAL PLT MORPH; ANISOCYTOSIS 1+; BAND#(MANUAL) 1.05 x10^3/uL; BANDS%(MANUAL) 19 % (0-7); EOS#(MANUAL) 0.06 x10^3/uL (0.0-0.4); EOS% (MANUAL) 1 % (1-7); LYMPH#(MANUAL) 1.71 x10^3/uL (1-3.4); LYMPHS% (MANUAL) 31 % (22-44); METAMYELOCYTES# (MANUAL) 0.06 x10^3/uL (0-0); METAMYELOCYTES% (MANUAL) 1 % (0-1); MONOS#(MANUAL) 1.27 x10^3/uL (0.3-2.7); MONOS% (MANUAL) 23 % (2-9); SEG#(MANUAL) 1.38 x10^3/uL (1.8-6.8); SEGS% (MANUAL) 25 % (42-75)
[2018-12-14 06:09] LABS: POLYCHROMASIA 1+
[2018-12-14 07:59] LABS: CRYPTOSPORIDIUM ANTIGEN Negative (Negative)
[2018-12-14] MEDS: DULOXETINE 30 MG CAPSULE.DR PO SCH (08:37)
[2018-12-14] MEDS: MULTIVITAMIN 1 TABLET PO SCH (08:37)
[2018-12-14 08:41] VITALS: BP 120/73
[2018-12-14] MEDS: NS + 20MEQ KCL 1,000 ML IV SCH ×2 (08:53→16:42)
[2018-12-14 12:22] VITALS: BP 107/66
[2018-12-14 18:53] VITALS: BP 110/69
[2018-12-14] MEDS: CEFTRIAXONE PMX 1GM/50ML 50 ML IV SCH (20:22)
[2018-12-15 00:59] VITALS: BP 109/63
[2018-12-15] MEDS: NS + 20MEQ KCL 1,000 ML IV SCH (03:21)
[2018-12-15] MEDS: METRONIDAZOLE PMX 500MG/100ML 100 ML IV SCH ×3 (06:18→22:22)
[2018-12-15 07:44] VITALS: BP 117/70
[2018-12-15 08:53] LABS: ANION GAP 5 mmol/L (5-15); CALCIUM 7.7 mg/dL (8.5-10.1); CHLORIDE 113 mmol/L (98-107); CREATININE 0.61 mg/dL (0.55-1.02)
[2018-12-15] MEDS: MULTIVITAMIN 1 TABLET PO SCH (09:12)
[2018-12-15] MEDS: DULOXETINE 30 MG CAPSULE.DR PO SCH (09:12)
[2018-12-15 09:16] LABS: MD YES; MEAN CORPUSCULAR HEMOGLOBIN 30.8 pg (27.0-34.8); MEAN CORPUSCULAR VOLUME 93.2 fL (80-100); MEAN PLATELET VOLUME 7.2 fL (7.4-10.4); PLATELET COUNT 196 x10^3/uL (130-400); RED BLOOD COUNT 4.06 x10^6/uL (3.82-5.3); RED CELL DISTRIBUTION WIDTH 14.8 % (9.6-15.2)
[2018-12-15 10:26] LABS: <PLATELET ESTIMATE> ADEQUATE; <PLT MORPHOLOGY> NORMAL PLT MORPH; ANISOCYTOSIS 1+; BAND#(MANUAL) 0.83 x10^3/uL; BANDS%(MANUAL) 13 % (0-7); LYMPH#(MANUAL) 1.41 x10^3/uL (1-3.4); LYMPHS% (MANUAL) 22 % (22-44); MONOS% (MANUAL) 14 % (2-9); POLYCHROMASIA 1+; REACTIVE LYMPHS # (MANUAL) 0.06 x10^3/uL (0-0); REACTIVE LYMPHS % (MANUAL) 1 % (0-0); SEGS% (MANUAL) 50 % (42-75)
[2018-12-15] MEDS: CHOLESTYRAMINE LIGHT 4GM PACKET PO SCH ×3 (10:29→21:00)
[2018-12-15 12:28] VITALS: BP 108/66
[2018-12-15 19:24] VITALS: BP 117/68
[2018-12-15] MEDS: CEFTRIAXONE PMX 1GM/50ML 50 ML IV SCH (20:22)
[2018-12-16 02:00] VITALS: BP 130/72
[2018-12-16] MEDS: METRONIDAZOLE PMX 500MG/100ML 100 ML IV SCH (06:03)
[2018-12-16] MEDS ORDERED: CHOL239. PO (07:28)
[2018-12-16] MEDS ORDERED: CEFD300C37 PO (07:28)
[2018-12-16] MEDS ORDERED: METR500T PO (07:28)
[2018-12-16 08:17] VITALS: BP 113/69
[2018-12-16] MEDS: CHOLESTYRAMINE LIGHT 4GM PACKET PO SCH (09:00)
[2018-12-16] MEDS: MULTIVITAMIN 1 TABLET PO SCH (09:00)
[2018-12-16] MEDS: DULOXETINE 30 MG CAPSULE.DR PO SCH (09:00)
== END 2018-12-16 09:25 | disposition home or self-care (01) | DRG 392 ==
LOC: ED 16:41 → EDIP 19:45 → 3NW 20:42 → DCLOUNGE 12-16 09:15
PROVIDERS: ADMIT Internal Medicine; ATTEND Internal Medicine
DX: K52.9 Noninfective gastroenteritis and colitis, unspecified (principal); C18.9 Malignant neoplasm of colon, unspecified; E87.1 Hypo-osmolality and hyponatremia; K50.90 Crohn's disease, unspecified, without complications; D72.825 Bandemia; E87.6 Hypokalemia; F32.9 Major depressive disorder, single episode, unspecified; N19 Unspecified kidney failure; Z80.3 Family history of malignant neoplasm of breast; Z82.3 Family history of stroke; Z87.891 Personal history of nicotine dependence; Z90.49 Acquired absence of other specified parts of digestive tract; Z90.710 Acquired absence of both cervix and uterus; Z98.1 Arthrodesis status; Z88.5 Allergy status to narcotic agent
CPT/HCPCS: 36415; 74177; 80048; 80053; 81001; 83690; 83735; 85025; 87046; 87324; 87328; 87329; 89055; 96361; 96374; 96375; G0378; J0696; J1170; J2405; J3480; Q9967; J7030

== ENCOUNTER 2019-09-24 10:04 | Outpatient (CLI) | payer OTHER ==
[~2019-09-24 10:04] MED LIST changes: +CEFD300C37 PO; +CHOL239. PO; +METR500T PO; +SENN-177 PO; -SENN1TAB8 PO
[2019-09-24] MEDS ORDERED: OMNIPAQUE 350 MG/ML, 100ML BOTTLE ONE (15:13)
== END 2019-09-24 23:59 | disposition home or self-care (01) ==
LOC: CFH 10:04
PROVIDERS: ATTEND Internal Medicine Hematology & Oncology
DX: C18.2 Malignant neoplasm of ascending colon (principal); J84.10 Pulmonary fibrosis, unspecified; Z87.891 Personal history of nicotine dependence
CPT/HCPCS: 71260; 74177; Q9967

== ENCOUNTER → 2020-09-10 | Outpatient (CLI) | payer OTHER ==
[~2020-09-10] MED LIST changes: +OMNIPAQUE 350 MG/ML, 100ML BOTTLE ONE
== END | disposition home or self-care (01) ==
LOC: CFH 12:06
PROVIDERS: ATTEND Internal Medicine Hematology & Oncology
DX: C18.2 Malignant neoplasm of ascending colon (principal)
CPT/HCPCS: 71260; 74177; Q9967